=== PATIENT | female | born 1985 | race Two or more races ===

== ENCOUNTER 2022-01-22 02:29 | Inpatient (IN) ==
[2022-01-22] MEDS ORDERED: Lactated Ringers 1000 ml BAG 1,000 ML IV ONE ×2 (03:58→05:20)
[2022-01-22] MEDS ORDERED: Buffered Lidocaine 1% SYRIN 1 ml INTRADERM ONE (03:58)
[2022-01-22] MEDS ORDERED: Lactated Ringers 1000 ml BAG 1,000 ML IV SCH ×3 (04:00→14:00)
[2022-01-22] MEDS ORDERED: OBEPIDURAL 250 ML EPIDURAL ONE (04:13)
[2022-01-22 04:27] LABS: ABS Eosinophils 0.1 10^3/ul (0-0.6); ABS Lymphocytes 1.6 10^3/ul (1.0-4.8); ABS Monocytes 0.7 10^3/ul (0-0.8); ABS Neutrophils 9.4 10^3/ul (1.5-7.7); Eosinophil % 0.8 %; Hematocrit 39 % (35-47); Hemoglobin 13.3 g/dL (12.0-16.0); Lymphocyte % 13.9 %; Mean Corpuscular HGB Conc 34 g/dL (31-36); Mean Corpuscular Hemoglobin 30 pg (27-31); Mean Corpuscular Volume 90 fL (80-97); Mean Platelet Volume 9.2 fL (7.4-10.4); Platelet Count 233 10^3/uL (150-450); Red Blood Count 4.39 10^6 /uL (3.70-4.87); Red Cell Distribution Width 13 % (10-15); White Blood Count 11.8 10^3/uL (3.5-10.8)
[2022-01-22 04:46] LABS: Urine Benzodiazepine Screen None Detected (None Detect); Urine Cannabinoids Screen None Detected (None Detect); Urine Opiates Screen None Detected (None Detect)
[2022-01-22] MEDS ORDERED: Phenylephrine 40 mcg/mL 10mL (400mcg) SYRINGE IV PUSH PRN (05:20)
[2022-01-22] MEDS ORDERED: EPHEDrine (Pressors) 50 MG/ML VIAL IV PUSH PRN (05:20)
[2022-01-22] MEDS ORDERED: Lactated Ringers 1000 ml BAG 500 ML IV PRN (05:20)
[2022-01-22] MEDS ORDERED: Sodium Citrate/Citric Acid LIQ 15 ML UDC PO PRN (05:20)
[2022-01-22 05:40] LABS: Urine Appearance Cloudy; Urine Bilirubin Negative (Negative); Urine Blood Negative (Negative); Urine Color Yellow; Urine Glucose Negative (Negative); Urine Ketones Negative (Negative); Urine Nitrite Negative (Negative); Urine Protein Negative (Negative); Urine Specific Gravity 1.018 (1.002-1.030); Urine Urobilinogen Negative (Negative)
[2022-01-22] MEDS ORDERED: OBEPIDURAL 250 ML EPIDURAL SCH (06:00)
[2022-01-22] MEDS ORDERED: Oxytocin in LR 20 UNITS/1,000 ML BAG IVPB ONE ×2 (11:10→12:16)
[2022-01-22] MEDS ORDERED: Oxytocin in LR 20 UNITS/1,000 ML BAG IVPB SCH (13:05)
[2022-01-22] MEDS: Witch Hazel PAD JAR TOPICAL PRN (16:06)
[2022-01-22] MEDS: Dibucaine 1% OINT 28.35 GM TUBE PR PRN (16:06)
[2022-01-22] MEDS ORDERED: Phenylephrine 40 mcg/mL 10mL (400mcg) SYRINGE ONE (17:09)
[2022-01-22] MEDS ORDERED: Lidocaine 1% VIAL 10 MG/ML VIAL ONE (17:46)
[2022-01-23 06:53] LABS: ABS Eosinophils 0.1 10^3/ul (0-0.6); ABS Lymphocytes 1.2 10^3/ul (1.0-4.8); ABS Monocytes 0.8 10^3/ul (0-0.8); ABS Neutrophils 11.3 10^3/ul (1.5-7.7); Eosinophil % 1.1 %; Hematocrit 35 % (35-47); Hemoglobin 11.7 g/dL (12.0-16.0); Lymphocyte % 9.2 %; Mean Corpuscular HGB Conc 34 g/dL (31-36); Mean Corpuscular Hemoglobin 31 pg (27-31); Mean Corpuscular Volume 91 fL (80-97); Mean Platelet Volume 8.7 fL (7.4-10.4); Platelet Count 175 10^3/uL (150-450); Red Cell Distribution Width 14 % (10-15); White Blood Count 13.4 10^3/uL (3.5-10.8)
[2022-01-23] MEDS: Witch Hazel PAD JAR TOPICAL PRN (08:41)
[2022-01-24 08:16] VITALS: BP 116/74
[2022-01-24] MEDS: Dibucaine 1% OINT 28.35 GM TUBE PR PRN (10:35)
[2022-01-24] MEDS: Witch Hazel PAD JAR TOPICAL PRN (10:35)
== END 2022-01-24 12:20 | disposition home or self-care (01) | DRG 807 ==
LOC: MCHOBOUT 02:29 → MCHOB 03:21
PROVIDERS: ADMIT Midwife; ATTEND Advanced Practice Midwife